=== PATIENT | female | born 1975 | race Caucasian/White ===

== ENCOUNTER 2024-03-22 10:45 | Emergency (ER) | payer OTHER ==
[2024-03-22] MEDS ORDERED: Sodium Chloride 0.9% 2.5 ML Syringe FLUSH PRN (11:47)
[2024-03-22] MEDS ORDERED: Sodium Chloride 0.9% 10 ML Syringe FLUSH PRN (11:47)
[2024-03-22] MEDS: Ondansetron 4 MG/2 ML SDV IVPUSH ONE (12:37)
[2024-03-22] MEDS: Sodium Chloride 0.9% 1,000 ML IV ONE ×2 (12:37→15:40)
[2024-03-22 12:42] LABS: BASOPHILS ABSOLUTE AUTO 0.04 K/uL (0.00-0.20); BASOPHILS PERCENT AUTO 0.4 % (0.0-1.0); EOSINOPHILS ABSOLUTE AUTO 0.06 K/uL (0.00-0.45); EOSINOPHILS PERCENT AUTO 0.6 % (0.0-6.0); HEMATOCRIT 39.3 % (37.0-47.0); HEMOGLOBIN 12.8 g/dL (12.0-16.0); IMMATURE GRAN ABSOLUTE AUTO 0.14 K/uL (0.00-0.05); IMMATURE GRAN PERCENT AUTO 1.4 % (0.0-0.4); LYMPHOCYTES ABSOLUTE AUTO 1.76 K/uL (1.00-4.80); LYMPHOCYTES PERCENT AUTO 17.2 % (24.0-44.0); MEAN CORPUSCULAR HGB CONC 32.6 g/dL (32.0-36.0); MEAN PLATELET VOLUME 10.6 fL (9.4-12.3); MONOCYTES PERCENT AUTO 6.9 % (0.0-8.0); NEUTROPHILS ABSOLUTE AUTO 7.51 K/uL (1.80-7.70); NEUTROPHILS PERCENT AUTO 73.5 % (41.0-71.0); PLATELET COUNT,PLT 551 K/uL (150-400); RED BLOOD CELL COUNT 4.57 M/uL (4.10-5.30); WHITE BLOOD CELL COUNT,WBC 10.21 K/uL (3.9-11.3)
[2024-03-22 13:22] LABS: A/G RATIO 0.5 (0.9-1.6); ALANINE AMINOTRANSFERASE,ALT 25 IU/L (14-63); ALKALINE PHOSPHATASE 136 U/L (46-116); ASPARTATE AMNIOTRANSFERASE,AST 14 IU/L (15-37); BILIRUBIN TOTAL 0.3 mg/dL (0.2-1.0); BLOOD UREA NITROGEN,BUN 10 mg/dL (7.0-18.0); CALCIUM 9.7 mg/dL (8.5-10.1); CARBON DIOXIDE,CO2 29.4 mmol/L (21.0-32.0); CHLORIDE,CL 96 mmol/L (98-107); CREATININE 1.2 mg/dL (0.6-1.0); EST CRCL DRUG DOSING (CG) 43.73 mL/min; GLUCOSE RANDOM 420 mg/dL (74-106); LIPASE 79 U/L (16-77); MAGNESIUM 2.2 mg/dL (1.8-2.4); POTASSIUM,K 4.2 mmol/L (3.5-5.1); PROTEIN TOTAL,TP 8.7 g/dL (6.4-8.2); SODIUM,NA 134 mmol/L (136-145)
[2024-03-22 13:23] LABS: ESTIMATED GFR 56 mL/min (>60)
[2024-03-22 13:49] LABS: APPEARANCE,URINE SLT CLOUDY; BILIRUBIN,URINE NEGATIVE (NEGATIVE); COLOR,URINE YELLOW; GLUCOSE,URINE >=1000 mg/dL (NEGATIVE); KETONES,URINE 15 mg/dL (NEGATIVE); LEUKOCYTE ESTERASE,URINE NEGATIVE (NEGATIVE); NITRITE,URINE NEGATIVE (NEGATIVE); OCCULT BLOOD,URINE NEGATIVE (NEGATIVE); PROTEIN,URINE NEGATIVE (NEGATIVE); UROBILINOGEN,URINE 0.2 EU/dL (<2.0)
[2024-03-22] MEDS ORDERED: Glucagon,Human Recombinant 1 MG Vial IM PRN (13:54)
[2024-03-22] MEDS ORDERED: 50% Dextrose in Water 50 ML Syringe IVPUSH PRN (13:54)
[2024-03-22] MEDS: Insulin Regular, Human 100 Units/ML 10 ML Vial SUBCUT ONE (15:42)
== END 2024-03-22 16:26 | disposition home or self-care (01) ==
LOC: MW.ED 10:45
DX: B34.9 Viral infection, unspecified (principal); E11.65 Type 2 diabetes mellitus with hyperglycemia; Z75.8 Other problems related to medical facilities and other health care; Z88.8 Allergy status to other drugs, medicaments and biological substances
CPT/HCPCS: 36415; 70450; 80053; 81003; 82009; 82947; 83690; 83735; 84484; 85025; 87428; 93005; 96361; 96374; 99285; J1815; J2405; J7030; 93010; 99284